=== PATIENT | female | born 1930 | race Caucasian/White ===

== ENCOUNTER 2017-08-18 13:23 | Emergency (ER) | payer MEDICARE, BC ==
--- NOTE | 2017-08-18 13:40 | EDM.PDOC ---
ED HPI GENERAL MEDICAL PROBLEM - General Chief Complaint: Trauma Stated Complaint: FACIAL INJURY Time Seen by Provider: 08/18/17 13:25 Source of Information: Reports: Patient, EMS History Limitations: Reports: No Limitations - History of Present Illness INITIAL COMMENTS - FREE TEXT/NARRATIVE: 86 yo female tripped in the parking lot of a local restaurant today and injured her nose. No LOC. Is not on any anticoagulants. Denies extremity pain. Here via EMS. Thinks tetanus is UTD. Onset: Today Onset Date: 08/18/17 Onset Time: 13:00 Duration: Minutes: Location: Reports: Face Quality: Reports: Ache Severity: Mild Improves with: Reports: None Worsens with: Reports: None Context: Reports: Trauma (fall from standing height to the ground) Associated Symptoms: Reports: No Other Symptoms Treatments [employer]: Reports: Other (see below) (none) nose, head, teeth Pain Score (Numeric/FACES): 3 - Related Data Allergies Allergy/AdvReac Type Severity Reaction Status Date / Time No Known Allergies Allergy Verified 08/18/17 13:53 Home Meds: Home Meds . [Unable to Verify Home Med List] 08/18/17 [History] Review of Systems - Review of Systems Review Of Systems: See Below Constitutional: Reports: No Symptoms Eyes: Reports: No Symptoms Ears: Reports: No Symptoms Nose: Reports: Congestion, Epistaxis (now resolved.) Mouth/Throat: Reports: No Symptoms Respiratory: Reports: No Symptoms Cardiovascular: Reports: No Symptoms GI/Abdominal: Reports: No Symptoms Musculoskeletal: Reports: No Symptoms. Denies: Neck Pain Skin: Reports: Wound (to nose.) Neurological: Reports: Dizziness (now resolved.) Psychiatric: Reports: No Symptoms ED EXAM, GENERAL - Physical Exam Exam: See Below Exam Limited By: No Limitations General Appearance: Alert, WD/WN, No Apparent Distress Eye Exam: Bilateral Eye: Normal Inspection, PERRL Ears: Normal External Exam, Normal Canal, Hearing Grossly Normal, Normal TMs Ear Exam: Bilateral Ear: Auricle Normal, Canal Normal, TM normal Nose: Nasal Tenderness, Other (No septal hematoma. Swelling of nasal bridge slight without deformity. No active bleeding. ) Throat/Mouth: Normal Inspection, Normal Lips, Normal Teeth, Normal Oropharynx, Normal Voice, No Airway Compromise Head: Atraumatic, Normocephalic Neck: Normal Inspection, Supple, Non-Tender Respiratory/Chest: No Respiratory Distress, Lungs Clear, Normal Breath Sounds, No Accessory Muscle Use Cardiovascular: Regular Rate, Rhythm, No Edema Back Exam: Normal Inspection. No: CVA Tenderness (R), CVA Tenderness (L) Extremities: Normal Inspection, Non-Tender, No Pedal Edema, Other (Limited shoulder ROM, not new) Neurological: Alert, Oriented, CN II-XII Intact, Normal Cognition, No Motor/ Sensory Deficits Psychiatric: Normal Affect, Normal Mood Skin Exam: Warm, Dry, Normal Color, No Rash, Other (small nasal abrasion with slow bleeding noted. ) Lymphatic: No Adenopathy Course - Vital Signs Text/Narrative:: Nose wound cleaned and dressed per nursing. No suturing required. Departure - Departure Time of Disposition: 14:01 Disposition: Home, Self-Care 01 Condition: Good Clinical Impression: Nasal laceration Qualifiers: Encounter type: initial encounter Qualified Code(s): S01.21XA - Laceration without foreign body of nose, initial encounter - Discharge Information Forms: ED Department Discharge
== END 2017-08-18 14:35 | disposition home or self-care (01) ==
LOC: FB.ED 13:23
DX: S01.21XA Laceration without foreign body of nose, initial encounter (principal); W01.198A Fall on same level from slipping, tripping and stumbling with subsequent striking against other object, initial encounter; Y92.481 Parking lot as the place of occurrence of the external cause
CPT/HCPCS: 99282; 99283